=== PATIENT | male | born 1990 | race Caucasian/White ===

== ENCOUNTER 2022-03-23 11:40 | Emergency (ER) | payer OTHER, SELFPAY ==
[2022-03-23 11:55] VITALS: BP 132/99; PULSE 67; RESP 16; O2SAT 96
--- NOTE | 2022-03-23 12:00 | DI.RAD_ITS ---
Exam(s) XR HAND RT COMPLETE EXAM: XR HAND RT COMPLETE CLINICAL HISTORY: crushed 5th finger in machine, r/o fx /. TECHNIQUE: 2D digital imaging was performed of the right hand. Three images were obtained. AP, late ral and oblique views were obtained. COMPARISON: No exams were available for comparison FINDINGS: BONES: No acute fracture is present. No bony destructive lesion is seen. JOINTS: No dislocation present. SOFT TISSUE: Normal. IMPRESSION: Unremarkable radiographs of the right hand. DATA REPOSITORY: RADIATION DOSE DELIVERED:
--- NOTE | 2022-03-23 12:00 | DI.RAD_ITS ---
Exam(s) XR THUMB LT EXAM: XR THUMB LT EXAM DATE/TIME: CLINICAL HISTORY: jammed thumb while playing basketball, r/o fx. TECHNIQUE: 2D digital imaging was performed of the left finger. Four views were obtained. PA/AP, o blique, and lateral views were obtained. COMPARISON: None. FINDINGS: BONES: No acute fracture is present. No bony destructive lesion is seen. JOINTS: No dislocation is present. SOFT TISSUE: Normal. IMPRESSION: No evidence of acute fracture or dislocation. DATA REPOSITORY: RADIATION DOSE DELIVERED:
--- NOTE | 2022-03-23 12:00 | DI.CT_ITS ---
Exam(s) CT HEAD WO EXAM: CT HEAD WO CLINICAL HISTORY: hit head on nail, r/o foreign body, skull fx. TECHNIQUE: Imaging Protocol: Axial computed tomography images with coronal and sagittal reformatted images were created and reviewed COMPARISON: No exams were available for comparison FINDINGS: Ventricles and Extra axial spaces: Normal in size and morphology for the patient's age. Hemorrhage: None. Cerebral parenchyma: Normal. Midline shift: None. Brainstem/Cerebellum: Normal. Calvarium: Normal. Visualized Paranasal sinuses/Mastoids: Clear. Soft Tissues: Unremarkable. No radiopaque foreign bodies are identified. IMPRESSION: 1. No acute intracranial process. 2. Findings were discussed with the emergency department at 12:52 p.m. on 03/23/2022. RADIATION DOSE DELIVERED: 808.07mGy.cm Total DLP DATA REPOSITORY: All CT scans at this facility are submitted to the National Radiology Data Registry (NRDR) Dose Index Registry (DIR) with the [employer] ([employer]). RADIATION OPTIMIZATION: All CT scans at this facility use at least one of these dose optimization te chniques: automated exposure control; mA and/or kV adjustment per patient size (includes targeted exa ms where dose is matched to clinical indication); or iterative reconstruction.
--- NOTE | 2022-03-23 12:15 | ED.GENADUL_ITS ---
Discharge Plan Disposition Patient Disposition: HOME Condition: Stable Discharge Details Clinical Impression: Puncture wound of head, Laceration of right hand, Crushing injury of right hand, Left thumb sprain Primary Care Provider: None,None ED Provider: Lena Werner Home Meds and New Rx's Prescriptions: New cephalexin 500 mg capsule 500 mg PO QID 7 Days Qty: 28 0RF Discharge Instructions Instructions: Laceration (ED), Puncture Wound (ED) Additional Instructions: Your CT head imaging and the x-rays of your hands today showed no evidence of acute concerning or significant findings. Keep wound clean and dry. Cover wound with bandage if risk of contamination. Otherwise you can keep the wound open to air if resting at home to allow edges to dry and heal. Alternate tylenol and motrin as needed and directed for pain. Follow-up with your primary care doctor in 1 week. Return to the emergency department with any worsening or new concerning symptoms. Discharge Data Discharge Date/Time-TO BE ENTERED AT DEPARTURE: 03/23/22 15:25 Discharge Physician: Lena Werner Medical Decision Making 31-year-old male presents with injury to the top of his head while in a crawl space at work and move forward and the top of his head made contact with the pointy edge of the nail. No LOC or vomiting. Unsure of his tetanus status. Patient also inquired about a right hand injury he sustained yesterday when he crushed his hand in a machine at work. He is also inquiring about evaluation of a left thumb injury when he jammed his thumb playing basketball recently. Patient has mild edema, tenderness and a 1 cm linear laceration that is closely approximated on the crown of his head. Bleeding controlled. No obvious foreign bodies noted. No focal deficits. Midline C-spine nontender. Review of right hand notes superficial lacerations along right fifth finger and palmar surface between right fourth and fifth MCP. There is also some pain with range of mot ion of the base of the left thumb. There is no obvious deformity noted to fingers or hand. Patient referred for CT head and right hand and left thumb imaging which were unremarkable. His hand wounds were irrigated and dressed. As his scalp wound is well approximated, no indication for staple or suture placement. Advised to follow up with the primary care doctor for re-evaluation. Usual and customary return precautions given prior to discharge. Medical Records Medical records reviewed: Yes I reviewed the patient's medical records. Imaging Data Radiologic Study: Radiologist's impression: CT HEAD WO CLINICAL HISTORY: ? hit head on nail, r/o foreign body, skull fx. ? TECHNIQUE:? Imaging Protocol: Axial computed tomography images with coronal and sagittal reformatted images were created and reviewed COMPARISON:? No exams were available for comparison FINDINGS: Ventricles and Extra axial spaces: Normal in size and morphology for the patient's age. Hemorrhage: None. Cerebral parenchyma: Normal. Midline shift: None. Brainstem/Cerebellum: Normal. Calvarium: Normal. Visualized Paranasal sinuses/Mastoids: Clear. Soft Tissues: Unremarkable. No radiopaque foreign bodies are identified. IMPRESSION: 1. No acute intracranial process. 2. Findings were discussed with the emergency department at 12:52 p.m. on 03/23/2022. ?XR HAND RT COMPLETE CLINICAL HISTORY: ? crushed 5th finger in machine, r/o fx 4th/5th.? TECHNIQUE:? 2D digital imaging was performed of the right hand. Three images were obtained.? AP, lateral and oblique views were obtained. COMPARISON:? No exams were available for comparison FINDINGS: BONES: No acute fracture is present. No bony destructive lesion is seen. JOINTS: No dislocation present. SOFT TISSUE: Normal. IMPRESSION: Unremarkable radiographs of the right hand. XR THUMB LT EXAM DATE/TIME:? CLINICAL HISTORY: ? jammed thumb while playing basketball, r/o fx.? TECHNIQUE:? 2D digital imaging was performed of the left finger.? Four views were obtained.? PA/AP, oblique, and lateral views were obtained. COMPARISON:? None. FINDINGS: BONES: No acute fracture is present. No bony destructive lesion is seen. JOINTS: No dislocation is present. ? SOFT TISSUE: Normal. IMPRESSION: No evidence of acute fracture or dislocation.? HPI General Mode of arrival: ambulatory . Date/Time Provider Initiated Documentation: 03/23/22 11:40 . Limitations to Documentation: no limitations . Information obtained by: patient . HPI Narrative: Patient is a 31-year-old male presents with head injury after working on normal house and laying on his back in a crawl space and pushed forward and hit the top of his head on the pointy edge of the nail this morning. Patient states he was able to move down and remove himself from the nail. He denies any known foreign body. He admits to headache at the site of the nail. He denies any loss of consciousness or vomiting. He has not taken any medication for pain. He is unsure of his tetanus status. He also states that he had a crush injury to his right hand yesterday which was caught in the middle of the machine. He states he sustained lacerations to his right fifth finger. He also states he was playing basketball last week and jammed his left thumb while playing. Related Data Home Medications Medication Instructions Recorded Confirmed cephalexin 500 mg capsule 500 mg PO QID 7 days #28 caps 03/23/22 Previous Rx's Medication Instructions Recorded cephalexin 500 mg capsule 500 mg PO QID 7 days #28 caps 03/23/22 General Stated Complaint: Laceration ANTOINETTE: 3 Review of Systems All systems reviewed & are unremarkable except as noted in HPI and below Constitutional Constitutional: Reports as per HPI, Denies chills, Denies fever(s) and Reports headache(s) Eyes Eyes: Denies blurry vision ENT Ears, Nose, Mouth, and Throat: Denies dizziness, Reports headache(s), Denies sore throat and Denies throat swelling Cardiovascular Cardiovascular: Denies chest pain and Denies dyspnea Respiratory Respiratory: Denies cough and Denies dyspnea Gastrointestinal Gastrointestinal: Denies abdominal pain, Denies diarrhea and Denies vomiting Genitourinary Genitourinary: Denies hematuria and Denies dysuria Musculoskeletal Musculoskeletal: Denies back pain and Denies numbness Comments: R hand pain, L thumb pain Integumentary/Breasts Skin/Breast: Denies lesions and Denies rash Neurologic Neurologic: Denies dizziness, Reports headache(s), Denies localized weakness and Denies numbness Allergic/Immunologic Allergic/Immunologic: Denies throat swelling PFSH All Active Problems (Updated 03/23/22 @ 15:10 by Lnea Werner DO) Puncture wound of head (Acute) Laceration of right hand (Acute) Crushing injury of right hand (Acute) Left thumb sprain (Acute) Medical History (Updated 03/23/22 @ 15:10 by Lena Werner DO) No significant past medical history Surgical History (Updated 03/23/22 @ 13:50 by Lena Werner DO) History of dental surgery Social History Smoking/Tobacco Use Status: Current-Occasional Tobacco Type: cigarettes Smoking risk assessment performed?: Yes Alcohol Intake: current Alcohol Intake frequency: 0-2 drinks per day Drug use: Never Substance use type: does not use Do you feel safe at home: Yes Do you feel safe in your relationship?: Yes Exam Const General: cooperative, healthy appearing and no acute distress Orientation: alert, awake and oriented x3 [facility] Head images: 1. Edema and dried blood, no obvious gapping wounds. 2. 1cm linear laceration noted in the center of crown of head. Edges well approximated. No active bleeding. No obvious foreign bodies. Ears: hearing grossly normal bilaterally, external ears normal and TM's normal bilaterally General nose exam: external nose normal Face and sinus: normal facial exam Mouth: oral mucosae normal Throat: posterior oropharynx normal Eyes General: appearance normal, both eyes and all related structures Pupils: PERRL EOM: EOM intact bilaterally Neck Neck: normal visual inspection and No submandibular swelling Lymphatic: no lymphadenopathy noted Chest Chest: normal inspection of the chest and no tenderness Resp Effort & Inspection: normal respiratory effort and able to speak in complete sentences Auscultation: clear to auscultation bilaterally Cardio Rate: regular rate Rhythm: regular rhythm GI Inspection: normal to inspection Palpation: soft, not firm, not rigid and nontender Auscultation: hypoactive bowel sounds Skin General skin exam: no rashes or lesions noted Neuro General: patient alert, patient awake, patient oriented x3, moves all extremities and no meningeal signs Cranial Nerves: CN's II-XI intact bilaterally Cognition: normal cognition Speech: speech normal Motor: muscle tone normal throughout Sensory Exam: no sensory deficits noted Extrem General: full ROM, capillary refill normal, no calf tenderness bilaterally and no edema Hand/finger images: 1. Pain with range of motion but no significant limitation of range of motion. No evidence of edema, erythema, ecchymosis 2. 1 cm superficial laceration. Edges well approximated. 3. 1 cm superficial laceration. Edges well approximated 4. 1.5 cm superficial C-shaped laceration. Edges well approximated. Other: There is some pain with range of motion of the right fifth finger but no deformity. Normal range of motion of the right wrist without edema or ecchymosis. Right radial pulse intact. Psych Appearance: grossly normal Mental Status: mental status grossly normal Speech and Movement: speech and movement normal Affect: normal affect Course Vital Signs Vital signs: Vital Signs Pulse 67 03/23/22 11:55 Respiratory Rate 16 03/23/22 11:55 Blood Pressure 132/99 H 03/23/22 11:55 Pulse Oximetry 96 03/23/22 11:55 Pulse 67 03/23/22 11:55 Respiratory Rate 16 03/23/22 11:55 Respiratory Effort 03/23/22 12:06 Blood Pressure 132/99 H 03/23/22 11:55 Pulse Oximetry 96 03/23/22 11:55 Oxygen Delivery Method Room Air 03/23/22 11:55 Oxygen Flow Rate 0 03/23/22 11:55 Pain Level 5 03/23/22 11:55 PAWSS Have you Been Recently Intoxicated or Drunk Within the Last 30 days?: Yes Have you Ever Experienced Previous Episodes of Alcohol Withdrawal?: No Have you ever Experienced Withdrawal Seizures?: No Have you ever Experienced Delirium Tremens(DT)s?: No Have you ever undergone Alcohol Rehabilitation Treatment (i.e, inpt ot outpatient treatment programs)?: No Have you ever Experienced Blackouts?: No Have you ever Combined Alcohol with other Downers within the last 90 days?: No Have you ever Combined Alcohol with any other Substance of Abuse during the last 90 days?: No Positive Blood Alcohol level on Presentation? [PCS.BAL]: No Evidence of Increased Autonomic Activity (i.e. HR>120, tremor, sweating, agitation, nausea)?: No Result: 1
[2022-03-23] MEDS: Acetaminophen 500 MG TAB 1000 MG PO (12:25)
[2022-03-23] MEDS: Bacitracin 1 PACKET (13:30)
[2022-03-23 13:53] VITALS: TEMP 37.3
== END 2022-03-23 15:25 | disposition home or self-care (01) ==
PROVIDERS: Emergency Provider Physician Assistant
DX: S67.21XA Crushing injury of right hand, initial encounter (principal); S61.411A Laceration without foreign body of right hand, initial encounter; S01.93XA Puncture wound without foreign body of unspecified part of head, initial encounter; S63.602A Unspecified sprain of left thumb, initial encounter; Z23 Encounter for immunization; W31.9XXA Contact with unspecified machinery, initial encounter; W45.0XXA Nail entering through skin, initial encounter; Y92.69 Other specified industrial and construction area as the place of occurrence of the external cause; Y99.0 Civilian activity done for income or pay
CPT/HCPCS: 90471; 99284; 70450; 73130; 73140